=== PATIENT | female | born 1965 | race Two or more races ===

== ENCOUNTER → 2017-09-09 | Outpatient (CLI) | payer OTHER ==
[~2017-09-09] MED LIST: CYCLOBENZAPRINE10 MG PO; FLEXERIL10 MG PO; GABAPENTIN800 MG PO; NABUMETONE750 MG PO
== END | disposition home or self-care (01) ==
LOC: MAMO-SONO 09:39
DX: Z12.31 Encounter for screening mammogram for malignant neoplasm of breast (principal); Z87.898 Personal history of other specified conditions; N60.11 Diffuse cystic mastopathy of right breast; N60.12 Diffuse cystic mastopathy of left breast

== ENCOUNTER 2017-11-15 11:14 | Outpatient (CLI) | payer OTHER | END 2017-11-15 15:49 | disposition home or self-care (01) | LOC: SONOGRAMA 11:14 | DX: E03.8 Other specified hypothyroidism (principal); E07.89 Other specified disorders of thyroid ==

== ENCOUNTER 2017-11-15 11:29 | Outpatient (CLI) | payer OTHER | END 2017-11-15 16:31 | disposition home or self-care (01) | LOC: RAD 501 11:29 | DX: J06.9 Acute upper respiratory infection, unspecified (principal); J32.8 Other chronic sinusitis ==

== ENCOUNTER 2017-12-23 10:19 | Outpatient (CLI) | payer OTHER | END 2017-12-23 11:49 | disposition home or self-care (01) | LOC: SONOGRAMA 10:19 | DX: E04.2 Nontoxic multinodular goiter (principal) ==

== ENCOUNTER 2018-12-22 10:15 | Outpatient (CLI) | payer OTHER ==
[~2018-12-22 10:15] MED LIST changes: +BUTALB-ACETAMI1 EACH PO
== END 2018-12-22 10:24 | disposition home or self-care (01) ==
LOC: MAMO-SONO 10:15
DX: Z12.31 Encounter for screening mammogram for malignant neoplasm of breast (principal); Z87.898 Personal history of other specified conditions; Q83.1 Accessory breast; Z80.3 Family history of malignant neoplasm of breast

== ENCOUNTER 2019-02-06 10:24 | Outpatient (CLI) | payer OTHER | END 2019-02-06 10:31 | disposition home or self-care (01) | LOC: SONOGRAMA 10:24 | DX: N60.11 Diffuse cystic mastopathy of right breast (principal); N60.12 Diffuse cystic mastopathy of left breast; R92.0 Mammographic microcalcification found on diagnostic imaging of breast ==

== ENCOUNTER 2020-02-26 10:34 | Outpatient (CLI) | payer OTHER | END 2020-02-26 10:40 | disposition home or self-care (01) | LOC: RAD 10:34 → MAMO-SONO 12:45 | PROVIDERS: ATTEND Family Medicine Adult Medicine | DX: R07.1 Chest pain on breathing (principal); Z12.31 Encounter for screening mammogram for malignant neoplasm of breast; N60.11 Diffuse cystic mastopathy of right breast; N60.12 Diffuse cystic mastopathy of left breast ==

== ENCOUNTER → 2020-03-25 | Outpatient (CLI) | payer OTHER | END | disposition home or self-care (01) | LOC: SONOGRAMA 10:09 | PROVIDERS: ATTEND Family Medicine Adult Medicine | DX: R16.0 Hepatomegaly, not elsewhere classified (principal); K76.0 Fatty (change of) liver, not elsewhere classified ==

== ENCOUNTER → 2020-04-23 | Outpatient (CLI) | payer OTHER | END | disposition home or self-care (01) | LOC: MAMO-SONO 09:15 | PROVIDERS: ATTEND Obstetrics & Gynecology | DX: Z12.31 Encounter for screening mammogram for malignant neoplasm of breast (principal); N60.11 Diffuse cystic mastopathy of right breast; N60.12 Diffuse cystic mastopathy of left breast ==

== ENCOUNTER 2020-06-07 08:54 | Outpatient (CLI) | payer OTHER | END 2020-06-07 09:03 | disposition home or self-care (01) | LOC: NUCLEAR 08:54 | PROVIDERS: ATTEND Family Medicine Adult Medicine | DX: M81.0 Age-related osteoporosis without current pathological fracture (principal) ==

== ENCOUNTER 2020-07-29 09:07 | Outpatient (CLI) | payer OTHER | END 2020-07-29 09:09 | disposition home or self-care (01) | LOC: RAD 09:07 | DX: G47.33 Obstructive sleep apnea (adult) (pediatric) (principal) ==

== ENCOUNTER 2021-05-08 09:53 | Outpatient (CLI) | payer OTHER | END 2021-05-08 10:08 | disposition home or self-care (01) | LOC: MAMO-SONO 09:53 | PROVIDERS: ATTEND Internal Medicine Endocrinology, Diabetes & Metabolism | DX: R92.1 Mammographic calcification found on diagnostic imaging of breast (principal); Z12.31 Encounter for screening mammogram for malignant neoplasm of breast; E04.1 Nontoxic single thyroid nodule; E11.65 Type 2 diabetes mellitus with hyperglycemia; E03.8 Other specified hypothyroidism; G62.89 Other specified polyneuropathies ==

== ENCOUNTER 2022-06-09 13:01 | Outpatient (CLI) | payer OTHER | END 2022-06-09 13:03 | disposition home or self-care (01) | LOC: NUCLEAR 13:01 | PROVIDERS: ATTEND Internal Medicine Endocrinology, Diabetes & Metabolism | DX: M85.9 Disorder of bone density and structure, unspecified (principal) ==

== ENCOUNTER 2022-06-10 10:03 | Outpatient (CLI) | payer OTHER | END 2022-06-10 10:11 | disposition home or self-care (01) | LOC: MAMO-SONO 10:03 | PROVIDERS: ATTEND Family Medicine Adult Medicine | DX: Z12.31 Encounter for screening mammogram for malignant neoplasm of breast (principal); N60.19 Diffuse cystic mastopathy of unspecified breast ==

== ENCOUNTER 2023-04-20 11:02 | Outpatient (CLI) | payer OTHER ==
[~2023-04-20 11:02] MED LIST changes: +TORADOL60 MG IM
== END 2023-04-20 11:07 | disposition home or self-care (01) ==
LOC: SONOGRAMA 11:02
PROVIDERS: ATTEND Internal Medicine
DX: R31.9 Hematuria, unspecified (principal); E11.65 Type 2 diabetes mellitus with hyperglycemia; E03.8 Other specified hypothyroidism; G62.9 Polyneuropathy, unspecified; R22.1 Localized swelling, mass and lump, neck; N63.0 Unspecified lump in unspecified breast

== ENCOUNTER 2023-06-11 09:24 | Outpatient (CLI) | payer OTHER | END 2023-06-11 09:29 | disposition home or self-care (01) | LOC: MAMO-SONO 09:24 | PROVIDERS: ATTEND Family Medicine Adult Medicine | DX: N60.19 Diffuse cystic mastopathy of unspecified breast (principal) ==

== ENCOUNTER 2024-07-26 10:04 | Outpatient (CLI) | payer OTHER | END 2024-07-26 10:15 | disposition home or self-care (01) | LOC: MAMO-SONO 10:04 | DX: N60.11 Diffuse cystic mastopathy of right breast (principal); Z12.31 Encounter for screening mammogram for malignant neoplasm of breast ==

== ENCOUNTER 2024-11-13 12:13 | Outpatient (CLI) | payer OTHER | END 2024-11-13 12:17 | disposition home or self-care (01) | LOC: SONOGRAMA 12:13 | PROVIDERS: ATTEND Internal Medicine Endocrinology, Diabetes & Metabolism | DX: R74.01 Elevation of levels of liver transaminase levels (principal); K74.00 Hepatic fibrosis, unspecified; E04.1 Nontoxic single thyroid nodule ==